=== PATIENT | female | born 1980 | race Caucasian/White ===

== ENCOUNTER → 2018-02-03 | Outpatient (CLI) | payer BC ==
--- NOTE | 2018-02-03 11:31 | RAD ---
Examination: Ultrasound pelvis complete HISTORY: History of pelvic pain, irregular menses COMPARISON: None available FINDINGS: The uterus measures 11.8 x 6.2 x 5.2 cm. The endometrium measures 1.6 cm in thickness. The right ovary measures 2.8 x 2.3 x 2.1 cm. The evaluation of the right ovary is very limited particularly its blood flow as a right ovary is situated deep in the pelvis. Patient complains of no acute pain. The left ovary measures 3.0 x 3.7 x 1.8 cm. Blood flow identified in the left ovary. IMPRESSION: Mild thickened appearing endometrium. Evaluation of the right ovary is limited as the right ovary is situated deep in the pelvis. Patient complains of no acute pain. Electronically signed by: Kelvin Greene MD (02/03/2018 11:28 AM) [id number]
--- NOTE | 2018-02-03 14:46 | RAD ---
Left axillary ultrasound without comparison for enlarged left axillary lymph nodes. TECHNIQUE AND FINDINGS: Real-time grayscale and color Doppler evaluation of the left axilla is performed. There are several axillary lymph nodes, ranging in size from 1.7 cm to 4.9 cm in long axis. These demonstrate normal morphology, and are likely pathologic on the basis of infectious, inflammatory, or neoplastic etiologies. IMPRESSION: 1. Multiple morphologically abnormal left axillary lymph nodes. Consider infectious, inflammatory, or neoplastic etiologies. Electronically signed by: All Guerra MD (02/03/2018 2:43 PM) [id number]
== END | disposition home or self-care (01) ==
LOC: US 09:01
PROVIDERS: ATTEND Physician Assistant
DX: Z01.411 Encounter for gynecological examination (general) (routine) with abnormal findings (principal); R59.0 Localized enlarged lymph nodes; E28.2 Polycystic ovarian syndrome; N80.8 Other endometriosis; F32.89 Other specified depressive episodes; Z80.0 Family history of malignant neoplasm of digestive organs; Z81.8 Family history of other mental and behavioral disorders; R53.83 Other fatigue
CPT/HCPCS: 76830; 76856; 76881

== ENCOUNTER → 2018-02-09 | Outpatient (CLI) | payer BC ==
--- NOTE | 2018-02-10 09:35 | RAD ---
DATE: 02/09/2018 EXAM: MAMMO [place] SCREENING BILATERAL HISTORY: Routine screening COMPARISON: None available This study was interpreted with the benefit of Computerized Aided Detection (CAD). Breast Density: SCATTERED The breast parenchyma shows scattered fibroglandular densities. Breast parenchyma level B. FINDINGS: 2-D and 3-D tomosynthesis imaging was performed in CC and MLO projections. There are several small smooth nodules in the axillary tail regions of both breasts compatible with benign intramammary lymph nodes. There is a smooth 6 mm nodule in the inferolateral aspect of the right breast. This is also most likely an intramammary lymph node. No spiculated mass or architectural distortion is seen. No suspicious microcalcifications are evident. Fat-containing lymph nodes are present in the axillary regions bilaterally. IMPRESSION: Smooth bilateral nodules are probably intramammary lymph nodes. In the absence of prior mammograms to establish stability, follow-up bilateral mammography in 6 months and then at yearly intervals is suggested. BI-RADS CATEGORY: 3 PROBABLY BENIGN FINDING(S)-SHORT INTERVAL FOLLOW-UP SUGGESTED RECOMMENDED FOLLOW-UP: 6M 6 MONTH FOLLOW-UP PQRS compliance statement: Patient information was entered into a reminder system with a target due date for the next mammogram. Mammography is a sensitive method for finding small breast cancers, but it does not detect them all and is not a substitute for careful clinical examination. A negative mammogram does not negate a clinically suspicious finding and should not result in delay in biopsying a clinically suspicious abnormality. "Our facility is accredited by the [employer] Mammography Program."
== END | disposition home or self-care (01) ==
LOC: MAMMO 13:05
PROVIDERS: ATTEND Physician Assistant
DX: Z12.31 Encounter for screening mammogram for malignant neoplasm of breast (principal)
CPT/HCPCS: 77063; 77067

== ENCOUNTER → 2018-06-17 | Outpatient (CLI) | payer BC ==
--- NOTE | 2018-06-17 16:33 | RAD ---
Complete abdominal ultrasound 06/17/2018 10:00 AM Clinical History: Technically difficult due to body habitus! Epigastric pain x's ~6 months nausea constant
pain intermittent Technique: Ultrasound examination of the abdomen was performed, and multiple static images were submitted for review. Comparison: None available Findings: The pancreas is poorly visualized. Visualized portions of the pancreas demonstrate no acute normalities. Visualized portions of the aorta and IVC are grossly unremarkable. Multiple gallstones noted within the gallbladder lumen. No evidence of wall thickening is seen. No pericholecystic fluid is identified. Common bile duct is top normal in diameter at 4 mm. The liver isvisualized. Visualized portions of liver demonstrate no focal lesion. Liver size is difficult to assess. Visualized liver appears to be diffusely echogenic suggesting hepatic steatosis. Right kidney is unremarkable in appearance measuring 11.2 cm in length. Left kidney is unremarkable in appearance measuring 12.1 cm in length. The spleen is unremarkable in appearance. IMPRESSION: 1. Cholelithiasis without sonographic evidence of cholecystitis 2. Poor visualization of the liver. Possible hepatic steatosis. Electronically signed by: Edgar Lares MD (06/17/2018 4:31 PM) [id number]
== END | disposition home or self-care (01) ==
LOC: US 09:36
PROVIDERS: ATTEND Physician Assistant
DX: K80.20 Calculus of gallbladder without cholecystitis without obstruction (principal)
CPT/HCPCS: 76700

== ENCOUNTER → 2020-04-23 | Outpatient (CLI) | payer OTHER ==
[~2020-04-23] MED LIST: ALBU2.5V8 INH; CHOL100013 PO; DEXL60CA2 PO; METF500T16 PO; ONDA4TAB7 PO
--- NOTE | 2020-04-23 09:50 | RAD ---
EXAM: Right ankle, 3 views; right tibia and fibula, 2 views. HISTORY: Pain. COMPARISON: None. FINDINGS: 3 views the right ankle and 2 views the right tibia and fibular obtained. There is internal fixation of a distal tibial metadiaphyseal fracture with a plate and multiple screws in anatomic ali gnment. There is a healed distal fibular diaphyseal fracture. The ankle mortise intact. No osteochond ral lesion is seen. There is lucency within the talar dome which is likely due to the abdomen overlyi ng osseous shadows. There is a tiny plantar spur. There is enthesopathy at Achilles tendon insertion. IMPRESSION: 1. Internal fixation of a healed distal tibial fracture. 2. Healed distal fibular fracture. Electronically signed by: Betsy Hernandez MD (04/23/2020 9:48 AM) [id number]
== END ==
LOC: DXRAD 09:04
PROVIDERS: ATTEND Physician Assistant
DX: M79.661 Pain in right lower leg (principal)
CPT/HCPCS: 73590; 73610

== ENCOUNTER 2020-05-18 11:45 | Inpatient (IN) | payer OTHER ==
[~2020-05-18] VITALS: Ht 165.1 cm; Wt 103.0 kg
[2020-05-18] MEDS ORDERED: ONDANSETRON PF 4 MG/2 ML VIAL. ONE (12:08)
[2020-05-18] MEDS ORDERED: ACETAMINOPHEN 500 MG TABLET PO ONE (12:15)
[2020-05-18] MEDS ORDERED: ONDANSETRON PF 4 MG/2 ML VIAL. IVP ONE (12:15)
[2020-05-18 12:29] LABS: BASO % 0 % (0-3); EOS % 0 % (0-3); HEMATOCRIT 44.3 % (36.0-47.0); HEMOGLOBIN 14.8 g/dL (12.0-15.5); LYMPH # 1.5 x10^3/uL (1.0-4.8); LYMPH % 27 % (24-48); MEAN CORPUSCULAR HEMOGLOBIN 31 pg (25-35); MEAN CORPUSCULAR HGB CONC 34 g/dL (31-37); MEAN CORPUSCULAR VOLUME 93 fL (79-100); MONO # 0.6 x10^3/uL (0.0-1.1); MONO % 10 % (0-9); NEUT # 3.6 x10^3uL (1.8-7.7); NEUT % 63 % (31-73); PLATELET COUNT 205 x10^3/uL (140-400); RED BLOOD COUNT 4.74 x10^6/uL (3.50-5.40); RED CELL DISTRIBUTION WIDTH 13.6 % (11.5-14.5); WHITE BLOOD COUNT 5.7 x10^3/uL (4.0-11.0)
--- NOTE | 2020-05-18 12:33 | RAD ---
EXAM: Chest, single view. HISTORY: Covid 19. COMPARISON: None. FINDINGS: A frontal view of the chest is obtained. There is no infiltrate, pleural effusion or pneumo thorax. The heart is normal in size. IMPRESSION: No acute pulmonary finding. Electronically signed by: Betsy Hernandez MD (05/18/2020 12:31 PM) [facility]
[2020-05-18 12:39] LABS: CALCIUM 8.5 mg/dL (8.5-10.1); CREATININE 0.9 mg/dL (0.6-1.0); POTASSIUM 3.4 mmol/L (3.5-5.1)
[2020-05-18 12:45] LABS: ALBUMIN 3.8 g/dL (3.4-5.0); ALBUMIN/GLOBULIN RATIO 0.9 (1.0-1.7); C REACTIVE PROTEIN 42.5 mg/L (0-3.3); TOTAL BILIRUBIN 0.3 mg/dL (0.2-1.0); TOTAL PROTEIN 8.1 g/dL (6.4-8.2)
[2020-05-18 12:53] LABS: BACTERIA,URINE MOD /HPF (0-FEW); BILIRUBIN,URINE NEG (NEG); CLARITY,URINE HAZY; COLOR,URINE YELLOW; GLUCOSE,URINE NEG (NEG); NITRITE,URINE NEG (NEG); RBC,URINE OCC /HPF (0-2); SQUAMOUS EPITHELIAL CELL,UR MANY /LPF; UROBILINOGEN,URINE 0.2 mg/dL (0.2 mg/dL)
[2020-05-18] MEDS ORDERED: guaiFENesin/CODEINE 100mg/10mg 5 ML LIQUID PO PRN (13:00)
[2020-05-18] MEDS ORDERED: DEXAMETHASONE SOD PHOS 10 MG/ML VIAL. IV ONE (13:00)
[2020-05-18] MEDS ORDERED: guaiFENesin/CODEINE 100mg/10mg 5 ML LIQUID ONE (13:04)
[2020-05-18] MEDS ORDERED: IV NORMAL SALINE 1,000ML 1,000 ML IV ONE (13:15)
[2020-05-18] MEDS ORDERED: ONDANSETRON PF 4 MG/2 ML VIAL. IVP PRN (13:15)
[2020-05-18] MEDS ORDERED: ACETAMINOPHEN 325 MG TABLET PO PRN (13:15)
--- NOTE | 2020-05-18 13:17 | PHYS DOC ---
Past History Past Medical History: Diabetes, Pneumonia Past Surgical History: Appendectomy, Cholecystectomy, Hysterectomy, Tonsillectomy Alcohol Use: Occasionally Adult General Chief Complaint Chief Complaint: MULTIPLE COMPLAINTS [facility] HPI Patient is a 40-year-old female presents to the emergency room with 3 days of body aches, cough, shortness of breath, fever, chills, headache. She states she initially got a headache on Wednesday night and then started having some body aches on Wednesday. On she went into work and they did a rapid test on her which was positive. Since then her symptoms have beginning worse. She has not been taking anything at home for her symptoms. She has also developed some diarrhea and nausea. She saw her primary care physician this morning who sent her here for evaluation due to significant shortness of breath and dehydration. Patient states that the aching is throughout her back and legs. Her headaches are intermittent and frontal. Review of Systems Review of Systems Complete ROS is negative unless otherwise documented in HPI Current Medications Current Medications Current Medications Medications (Trade) Dose Ordered Sig/Jacob Start Time Stop Time Status Last Admin Dose Admin Acetaminophen (Tylenol) 500 mg 1X ONCE 05/18/20 12:15 05/18/20 12:16 DC 05/18/20 12:14 500 MG Dexamethasone Sodium Phosphate (Decadron) 10 mg 1X ONCE 05/18/20 13:00 05/18/20 13:01 DC 05/18/20 13:08 10 MG Guaifenesin/ Codeine Phosphate (Robitussin Ac) 5 ml STK-MED ONCE 05/18/20 13:04 05/18/20 13:05 DC Ondansetron HCl (Zofran) 4 mg 1X ONCE 05/18/20 12:15 05/18/20 12:16 DC 05/18/20 12:12 4 MG Sodium Chloride 1,000 ml @ 1,000 mls/hr 1X ONCE 05/18/20 13:15 05/18/20 14:14 05/18/20 13:09 1,000 MLS/HR Allergies Allergies Allergies Coded Allergies Type Severity Reaction Last Updated Verified No Known Drug Allergies 05/18/20 No Physical Exam Physical Exam General: Awake, alert, mild distrss. Well Nourished, well hydrated. Cooperative HEENT: Atraumatic, EOMI, PERRL, airway patent, moist oral mucosa Neck: Supple, trachea midline Respiratory: CTA bilaterally, normal effort, no wheezing/crackles CV: tachycardic, no murmur, cap refill <2 GI: Soft, nondistended, nontender, no masses MSK: No obvious deformities Skin: Warm, dry, intact Neuro: A&O x3, speech NL, sensory and motor grossly intact, no focal deficits Psych: Normal affect, normal mood, not suicidal or homicidal Current Patient Data Vital Signs Vital Signs Date Time Temp Pulse Resp B/P (MAP) Pulse Ox O2 Delivery O2 Flow Rate FiO2 05/18/20 11:48 100.5 103 129/80 (96) 98 05/18/20 11:45 18 Lab Results Laboratory Tests Test 05/18/20 12:00 05/18/20 12:07 White Blood Count 5.7 x10^3/uL (4.0-11.0) Red Blood Count 4.74 x10^6/uL (3.50-5.40) Hemoglobin 14.8 g/dL (12.0-15.5) Hematocrit 44.3 % (36.0-47.0) Mean Corpuscular Volume 93 fL (79-100) Mean Corpuscular Hemoglobin 31 pg (25-35) Mean Corpuscular Hemoglobin Concent 34 g/dL (31-37) Red Cell Distribution Width 13.6 % (11.5-14.5) Platelet Count 205 x10^3/uL (140-400) Neutrophils (%) (Auto) 63 % (31-73) Lymphocytes (%) (Auto) 27 % (24-48) Monocytes (%) (Auto) 10 % (0-9) H Eosinophils (%) (Auto) 0 % (0-3) Basophils (%) (Auto) 0 % (0-3) Neutrophils # (Auto) 3.6 x10^3uL (1.8-7.7) Lymphocytes # (Auto) 1.5 x10^3/uL (1.0-4.8) Monocytes # (Auto) 0.6 x10^3/uL (0.0-1.1) Eosinophils # (Auto) 0.0 x10^3/uL (0.0-0.7) Basophils # (Auto) 0.0 x10^3/uL (0.0-0.2) Urine Collection Type Unknown Urine Color Yellow Urine Clarity Hazy Urine pH 6.0 Urine Specific [place] 1.020 Urine Protein Neg (NEG-TRACE) Urine Glucose (UA) Neg mg/dL (NEG) Urine Ketones (Stick) Neg mg/dL (NEG) Urine Blood Small (NEG) Urine Nitrite Neg (NEG) Urine Bilirubin Neg (NEG) Urine Urobilinogen Dipstick 0.2 mg/dL (0.2 mg/dL) Urine Leukocyte Esterase Neg (NEG) Urine RBC Occ /HPF (0-2) Urine WBC 5-10 /HPF (0-4) Urine Squamous Epithelial Cells Many /LPF Urine Transitional Epithelial Cells Occ /LPF Urine Bacteria Mod /HPF (0-FEW) Sodium Level 134 mmol/L (136-145) L Potassium Level 3.4 mmol/L (3.5-5.1) L Chloride Level 97 mmol/L (98-107) L Carbon Dioxide Level 28 mmol/L (21-32) Anion Gap 9 (6-14) Blood Urea Nitrogen 11 mg/dL (7-20) Creatinine 0.9 mg/dL (0.6-1.0) Estimated GFR (Cockcroft-Gault) 69.0 BUN/Creatinine Ratio 12 (6-20) Glucose Level 101 mg/dL (70-99) H Calcium Level 8.5 mg/dL (8.5-10.1) Total Bilirubin 0.3 mg/dL (0.2-1.0) Aspartate Amino Transferase (AST) 45 U/L (15-37) H Alanine Aminotransferase (ALT) 61 U/L (14-59) H Alkaline Phosphatase 51 U/L (46-116) Lactate Dehydrogenase 213 U/L (81-234) Creatine Kinase 97 U/L (26-192) C-Reactive Protein 42.5 mg/L (0-3.3) H Total Protein 8.1 g/dL (6.4-8.2) Albumin 3.8 g/dL (3.4-5.0) Albumin/Globulin Ratio 0.9 (1.0-1.7) L EKG EKG [] Radiology/Procedures Radiology/Procedures [] Heart Score Risk Factors: Risk Factors: DM, Current or recent (<one month) smoker, HTN, HLP, family history of CAD, obesity. Risk Scores: Risk Factors: DM, Current or recent (<one month) smoker, HTN, HLP, family history of CAD, obesity. Course & Med Decision Making Course & Med Decision Making Pertinent Labs and Imaging studies reviewed. (See chart for details) Patient is a 40-year-old female who presents to the emergency room with multiple Covid symptoms. At this time there is concern for the novel coronavirus 19. Patient's risk factors include obesity. Risk stratifying work-up was ordered including chest x-ray, d-dimer, CPK, CRP, LDH, troponin, ferritin, CBC, CMP. At this time, patients labs, vitals, and exam are significant for hypoxia. Due to patient's risk and clinical picture, they will need to be admitted at this time. IVFs will be limited due to concern for fluid overload in COVID-19 patients. Patient will be given empiric antibiotics due to infiltrates and risk of co- bacterial infection. Further treatment will be dictated by the inpatient team. Dragon Disclaimer Dragon Disclaimer This electronic medical record was generated, in whole or in part, using a voice recognition dictation system. Departure Departure: Impression: Primary Impression: 2019 novel coronavirus disease (COVID-19) Additional Impression: Respiratory failure with hypoxia Disposition: ADMITTED INPT THIS HOSP Condition: STABLE Referrals: JESSICA CORREA MD (PCP) Problem Qualifiers JENN CORDON MD May 18, 2020 13:17
[2020-05-18] MEDS ORDERED: IV NORMAL SALINE 50ML 50 ML ONE (14:44)
[2020-05-18] MEDS ORDERED: cefTRIAXone SODIUM 1 GM VIAL ONE (14:44)
[2020-05-18] MEDS ORDERED: MAG HYDROX/AL HYDROX/SIMETH 30 ML ORAL.SUSP PO PRN (16:30)
[2020-05-18] MEDS ORDERED: ELECTROLYTE (NON-ICU) PROTOCOL. MC PRN (16:30)
[2020-05-18 16:52] VITALS: BP 114/45
--- NOTE | 2020-05-18 17:10 | NUR ---
Patient admitted from [facility] ED. Patient accompanied with EMS staff. Patient able to ambulate to bed. Patient's belongings kept with patient, hooked up to secured entrance monitor and oxygen. Initial assessments complete, Rocephin from ER completed upon admission. Dr. Hawkins bedside to assess patient at this time, no complaints of pain. Will continue to monitor critically.
[2020-05-18] MEDS: ENOXAPARIN 40 MG/0.4 ML SYRINGE. SQ SCH (17:30)
[2020-05-18] MEDS ORDERED: ONDA4TAB7 PO (18:32)
[2020-05-18] MEDS ORDERED: METF500T16 PO (18:35)
[2020-05-18 20:00] VITALS: BP 97/56
[2020-05-18] MEDS ORDERED: IPRATROPIUM BROMIDE 0.5 MG/2.5 ML NEBU. NEB SCH (20:00)
[2020-05-18] MEDS: IPRATROPIUM/ALBUTEROL 20/100mcg/INH INHALER. INH SCH (20:21)
[2020-05-18] MEDS: DEXAMETHASONE 4 MG TABLET PO SCH (20:21)
[2020-05-18] MEDS: ACETAMINOPHEN 500 MG TABLET PO PRN (20:33)
[2020-05-19] MEDS: guaiFENesin/CODEINE 100mg/10mg 5 ML LIQUID PO PRN ×3 (04:48→18:42)
[2020-05-19 05:30] VITALS: BP 97/58
[2020-05-19] MEDS: LACTOBACILLUS RHAMNOSUS GG 1 CAPSULE. PO SCH ×2 (07:58→20:04)
[2020-05-19] MEDS: ACETAMINOPHEN 500 MG TABLET PO PRN (07:59)
[2020-05-19] MEDS: DEXAMETHASONE 4 MG TABLET PO SCH ×3 (07:59→20:04)
[2020-05-19] MEDS: AZITHROMYCIN 250 MG TABLET. PO SCH (07:59)
[2020-05-19] MEDS: IPRATROPIUM/ALBUTEROL 20/100mcg/INH INHALER. INH SCH ×4 (08:00→20:00)
[2020-05-19 08:45] LABS: BASO % 1 % (0-3); EOS % 0 % (0-3); HEMATOCRIT 45.6 % (36.0-47.0); HEMOGLOBIN 15.3 g/dL (12.0-15.5); LYMPH # 0.6 x10^3/uL (1.0-4.8); LYMPH % 20 % (24-48); MEAN CORPUSCULAR HEMOGLOBIN 31 pg (25-35); MEAN CORPUSCULAR HGB CONC 34 g/dL (31-37); MEAN CORPUSCULAR VOLUME 94 fL (79-100); MONO # 0.3 x10^3/uL (0.0-1.1); MONO % 8 % (0-9); NEUT # 2.3 x10^3uL (1.8-7.7); NEUT % 72 % (31-73); PLATELET COUNT 199 x10^3/uL (140-400); RED BLOOD COUNT 4.87 x10^6/uL (3.50-5.40); RED CELL DISTRIBUTION WIDTH 13.3 % (11.5-14.5); WHITE BLOOD COUNT 3.2 x10^3/uL (4.0-11.0)
[2020-05-19 11:00] VITALS: BP 97/66
[2020-05-19 13:43] LABS: ALBUMIN 3.5 g/dL (3.4-5.0); TOTAL PROTEIN 7.8 g/dL (6.4-8.2)
[2020-05-19 13:44] LABS: CALCIUM 8.7 mg/dL (8.5-10.1); CREATININE 0.6 mg/dL (0.6-1.0); GFR 110.2; POTASSIUM 4.3 mmol/L (3.5-5.1); TOTAL BILIRUBIN 0.2 mg/dL (0.2-1.0)
[2020-05-19 13:45] LABS: DIRECT BILIRUBIN 0.1 mg/dL (0.0-0.2)
[2020-05-19 15:00] VITALS: BP 96/61
[2020-05-19] MEDS: ENOXAPARIN 40 MG/0.4 ML SYRINGE. SQ SCH (16:34)
--- NOTE | 2020-05-19 16:59 | PN ---
DATE: SUBJECTIVE: A 40-year-old female in with COVID-19 pneumonia, acute respiratory distress. The patient is feeling much better today, not as achy. OBJECTIVE: VITAL SIGNS: Blood pressure approximately 100/66, respiratory rate 20, pulse 60, afebrile. The patient is very ill appearing, but markedly improved 2 liters at 97%. GENERAL: The patient is alert and oriented. LUNGS: Diminished throughout, but basically clear. CARDIOVASCULAR: Regular sinus rhythm. ABDOMEN: Soft, nontender. EXTREMITIES: No clubbing, cyanosis, nor edema. NEUROLOGIC: Stable. IMPRESSION: COVID-19 pneumonia, acute exacerbation of asthma, hypoxia. PLAN: Continue to monitor the patient accordingly. JESSICA CORREA MD DR: NAHOMY/johanna JOB#: [id number] / [id number]
[2020-05-19 20:00] VITALS: BP 90/69
[2020-05-19] MEDS: ZOLPIDEM 5 MG TABLET. PO PRN (20:05)
[2020-05-19 23:34] VITALS: BP 92/55
[2020-05-20] MEDS: AZITHROMYCIN 250 MG TABLET. PO SCH (07:49)
[2020-05-20] MEDS: ACETAMINOPHEN 500 MG TABLET PO PRN (07:49)
[2020-05-20] MEDS: DEXAMETHASONE 4 MG TABLET PO SCH ×3 (07:49→20:57)
[2020-05-20] MEDS: IPRATROPIUM/ALBUTEROL 20/100mcg/INH INHALER. INH SCH ×4 (07:49→20:00)
[2020-05-20] MEDS: LACTOBACILLUS RHAMNOSUS GG 1 CAPSULE. PO SCH ×2 (07:49→20:56)
[2020-05-20 08:32] VITALS: BP 126/68
[2020-05-20] MEDS: guaiFENesin/CODEINE 100mg/10mg 5 ML LIQUID PO PRN (10:01)
--- NOTE | 2020-05-20 10:06 | PN ---
DATE: 05/20/2020 SUBJECTIVE: The patient is a 40-year-old female in with bilateral COVID-19 pneumonia, acute respiratory failure, severe bronchospasm. The patient had been feeling better yesterday. Says she does not feel well, as she did yesterday. Blood pressure dropped down to 92/55, respiratory rate 18, pulse 84, temperature up to 100.9. She is on 2 liters of nasal cannula. She has severe coughing jags, given her coughing medication Combivent, Decadron. PHYSICAL EXAMINATION: GENERAL: The patient otherwise on exam is alert and oriented, but very uncomfortable with her coughing and weakness. LUNGS: Diminished throughout, poor movement of air, but basically making good progress there. The patient otherwise making fair progress, but still obviously ____ way to go. She continues on Rocephin, Levaquin, azithromycin, Decadron, Lovenox treatments. She is certainly not low enough to put her on remdesivir. We will continue to monitor and give her some guaifenesin along with her cough medicine, Fioricet. She does have a headache, although she said Tylenol helped it. She has no nuchal rigidity. No nausea or vomiting presently. She is alert and oriented. IMPRESSION: COVID-19 pneumonia, severe bronchospasm, hypotension. Continue to monitor her. Continue on IV antibiotic therapy, respiratory therapy and make further adjustments accordingly. JESSICA CORREA MD DR: NAHOMY/johanna JOB#: [id number] / [id number]
[2020-05-20 11:33] VITALS: BP 101/71
[2020-05-20] MEDS ORDERED: IPRATRPIUM/ALBUTEROL 0.5/2.5MG 3 ML NEBU. INH SCH (12:00)
[2020-05-20] MEDS: BUTALB/APAP/CAFEIN 50/325/40MG TABLET. PO PRN ×2 (13:32→20:57)
[2020-05-20 13:42] VITALS: BP 98/56
--- NOTE | 2020-05-20 16:31 | RAD ---
XR CHEST 1V INDICATION: Reason: SHORTNESS OF BREATH / Spl. Instructions: / History: . COMPARISON STUDY: 05/18/2020. FINDINGS: Lungs: Low lung volume. Increasing bibasilar opacities. Normal pulmonary vasculature. Pleura: No pleural effusion or pneumothorax. Heart and Mediastinum: Stable cardiomediastinal silhouette and great vessels. IMPRESSION: Low lung volumes with increasing bibasilar opacities, possibly subsegmental atelectasis or a developi ng infectious/inflammatory process. Electronically signed by: Marcio Fitzpatrick MD (05/20/2020 4:28 PM) [facility]
[2020-05-20] MEDS: ENOXAPARIN 40 MG/0.4 ML SYRINGE. SQ SCH (16:53)
[2020-05-20 16:57] LABS: BASO # 0.1 x10^3/uL (0.0-0.2); BASO % 1 % (0-3); EOS % 0 % (0-3); HEMATOCRIT 41.6 % (36.0-47.0); LYMPH # 0.7 x10^3/uL (1.0-4.8); LYMPH % 6 % (24-48); MEAN CORPUSCULAR HEMOGLOBIN 31 pg (25-35); MEAN CORPUSCULAR HGB CONC 34 g/dL (31-37); MEAN CORPUSCULAR VOLUME 93 fL (79-100); MONO # 0.6 x10^3/uL (0.0-1.1); MONO % 6 % (0-9); NEUT # 9.4 x10^3uL (1.8-7.7); NEUT % 88 % (31-73); PLATELET COUNT 229 x10^3/uL (140-400); RED BLOOD COUNT 4.46 x10^6/uL (3.50-5.40); RED CELL DISTRIBUTION WIDTH 13.3 % (11.5-14.5); WHITE BLOOD COUNT 10.7 x10^3/uL (4.0-11.0)
[2020-05-20 17:11] LABS: CALCIUM 8.2 mg/dL (8.5-10.1); CREATININE 0.9 mg/dL (0.6-1.0); POTASSIUM 3.5 mmol/L (3.5-5.1)
[2020-05-20] MEDS ORDERED: PIP/TAZO PER PHARMACY MC PRN (18:00)
[2020-05-20] MEDS: PIPERACILLIN/TAZOBACTAM 3.375 GM in IV NORMAL SALINE 50ML 50 ML IV SCH (18:24)
[2020-05-20 20:00] VITALS: BP 111/73
[2020-05-20] MEDS: ZOLPIDEM 5 MG TABLET. PO PRN (20:56)
[2020-05-21 00:30] VITALS: BP 97/60
[2020-05-21] MEDS: PIPERACILLIN/TAZOBACTAM 3.375 GM in IV NORMAL SALINE 50ML 50 ML IV SCH ×4 (00:34→18:26)
[2020-05-21] MEDS: guaiFENesin/CODEINE 100mg/10mg 5 ML LIQUID PO PRN ×2 (05:52→18:25)
[2020-05-21 06:03] VITALS: BP 100/64
[2020-05-21 06:31] LABS: BASO % 0 % (0-3); EOS % 0 % (0-3); HEMATOCRIT 40.3 % (36.0-47.0); HEMOGLOBIN 13.4 g/dL (12.0-15.5); LYMPH # 0.8 x10^3/uL (1.0-4.8); LYMPH % 12 % (24-48); MEAN CORPUSCULAR HEMOGLOBIN 31 pg (25-35); MEAN CORPUSCULAR HGB CONC 33 g/dL (31-37); MEAN CORPUSCULAR VOLUME 94 fL (79-100); MONO # 0.5 x10^3/uL (0.0-1.1); MONO % 7 % (0-9); NEUT # 5.7 x10^3uL (1.8-7.7); NEUT % 82 % (31-73); PLATELET COUNT 200 x10^3/uL (140-400); RED BLOOD COUNT 4.31 x10^6/uL (3.50-5.40); RED CELL DISTRIBUTION WIDTH 13.3 % (11.5-14.5)
[2020-05-21 06:41] LABS: CALCIUM 8.1 mg/dL (8.5-10.1); CREATININE 0.7 mg/dL (0.6-1.0); GFR 92.2; POTASSIUM 3.7 mmol/L (3.5-5.1)
[2020-05-21] MEDS: IPRATROPIUM/ALBUTEROL 20/100mcg/INH INHALER. INH SCH ×4 (08:00→20:00)
[2020-05-21] MEDS: DEXAMETHASONE 4 MG TABLET PO SCH ×4 (08:41→20:00)
[2020-05-21] MEDS: LACTOBACILLUS RHAMNOSUS GG 1 CAPSULE. PO SCH ×2 (08:41→20:00)
[2020-05-21] MEDS: AZITHROMYCIN 250 MG TABLET. PO SCH (08:41)
[2020-05-21 09:32] VITALS: BP 94/66
--- NOTE | 2020-05-21 10:47 | PN ---
DATE: 05/21/2020 SUBJECTIVE: A 40-year-old female with bilateral COVID-19 pneumonia, had been doing well couple of days ago, now ____ temperature is 101-99, oxygen saturation is depreciated and have to increase her oxygen saturation, dropped down in the 80s without her nasal cannula on. The patient is still chilling and having severe problems with this infection despite being on Levaquin, Zosyn and azithromycin. OBJECTIVE: GENERAL: The patient otherwise continues on her Decadron. She is also on Lovenox as well, but continues to somewhat deteriorate. She is having trouble bringing up phlegm, some shortness of breath with minimal exertion. Otherwise, alert and oriented, but very ill appearing. LUNGS: Diminished, particularly in the bases. CARDIOVASCULAR: Regular sinus rhythm, S1, S2. ABDOMEN: Soft, nontender, no rebounding, no guarding. Positive bowel sounds. EXTREMITIES: No clubbing, cyanosis or edema. NEUROLOGIC: Intact. LABORATORY DATA: White count looks basically stable as does her electrolytes. Blood sugars are a little bit high with the Decadron. Otherwise, we will continue to monitor her accordingly and make further evaluation on her as indicated. IMPRESSION: Therefore, bilateral COVID-19 pneumonia, sepsis, acute respiratory distress with hypoxia, elevated liver enzymes, hyperglycemia. PLAN: Continue with IV therapy and try to start her on remdesivir per pharmacy's approval. JESSICA CORREA MD DR: NAHOMY/johanna JOB#: [id number] / [id number]
[2020-05-21] MEDS ORDERED: REMDESIVIR LOAD in IV NORMAL SALINE 250ML TV IV ONE (12:00)
[2020-05-21 13:50] VITALS: BP 91/49
[2020-05-21 14:35] LABS: BACTERIA,URINE 0 /HPF (0-FEW); BILIRUBIN,URINE NEG (NEG); CLARITY,URINE CLEAR; COLOR,URINE YELLOW; GLUCOSE,URINE NEG (NEG); NITRITE,URINE NEG (NEG); SQUAMOUS EPITHELIAL CELL,UR FEW /LPF; UROBILINOGEN,URINE 0.2 mg/dL (0.2 mg/dL); WBC,URINE OCC /HPF (0-4)
[2020-05-21] MEDS: ENOXAPARIN 40 MG/0.4 ML SYRINGE. SQ SCH (17:11)
[2020-05-21 19:47] VITALS: BP 97/61
[2020-05-21] MEDS: BUTALB/APAP/CAFEIN 50/325/40MG TABLET. PO PRN (20:00)
[2020-05-21] MEDS: ZOLPIDEM 5 MG TABLET. PO PRN (20:00)
[2020-05-21 22:53] VITALS: BP 108/65
[2020-05-22] MEDS: PIPERACILLIN/TAZOBACTAM 3.375 GM in IV NORMAL SALINE 50ML 50 ML IV SCH ×2 (00:15→05:34)
[2020-05-22] MEDS: guaiFENesin/CODEINE 100mg/10mg 5 ML LIQUID PO PRN (05:33)
[2020-05-22 05:35] VITALS: BP 92/54
[2020-05-22] MEDS: LACTOBACILLUS RHAMNOSUS GG 1 CAPSULE. PO SCH (07:50)
[2020-05-22] MEDS: AZITHROMYCIN 250 MG TABLET. PO SCH (07:50)
[2020-05-22] MEDS: DEXAMETHASONE 4 MG TABLET PO SCH (07:51)
[2020-05-22] MEDS: IPRATROPIUM/ALBUTEROL 20/100mcg/INH INHALER. INH SCH ×2 (07:51→12:00)
--- NOTE | 2020-05-22 10:32 | NUR ---
LEATHER BELT MAKER REPORTS DECREASED SA02 DURING ROUTINE VS. ASSESSED LUNG SOUNDS, BASES ARE DIMINISHED. EFFORT OF BREATHING HAS INCREASED. O2 INCREASED TO 6L/NC, SATURATIONS HOVER IN HIGH 80'S. DR CORREA IS ROUNDING ON FLOOR, REQUESTS CXR ET ABG. TESTING ORDERED, AWAITING RESULT.
[2020-05-22 10:51] VITALS: BP 89/45
[2020-05-22] MEDS ORDERED: IV NORMAL SALINE 1,000ML 1,000 ML IV SCH ×2 (11:15→12:15)
[2020-05-22] MEDS ORDERED: REMDESIVIR 100mg in NORMAL SALINE 250ML X 4 DAYS IV SCH (12:00)
--- NOTE | 2020-05-22 12:04 | NUR ---
ENTERED ROOM WITH INTENT TO PLACE PT ON NON-REBREATHER. SAO2 CURRENTLY 93% ON 6L/NC. PT DECLINES NON REBREATHER AT THIS TIME, BUT STATES WILL REPORT EVEN THE SLIGHTEST CHANGE IN BREATHING FOR SWITCH FROM NASAL CANNULA.
--- NOTE | 2020-05-22 12:53 | NUR ---
PT CALLS OUT FOR INCREASED LABOR OF BREATHING. SAO2 IS 88% ON 6LN/C. CHANGED OVER TO NON REBREATHER AT 15L, IMMEDIATE IMPROVEMENT TO 95%. REC'D CALL FROM [facility], TRANSFER TO ROOM 664. EMS INITIATED. AWAITING THEIR ARRIVAL FOR TRANSPORT.
--- NOTE | 2020-05-22 13:10 | NUR ---
REPORT GIVEN TO ALMA DELIA MATUTE, AT [facility]. EMS ARRIVES TO TRANSPORT. PT MOVED TO [facility], ALL POSSESSION SENT WITH HER AT THIS TIME.
--- NOTE | 2020-05-22 14:34 | RAD ---
EXAM: AP View of the chest DATE: 05/22/2020 11:00 AM INDICATION: COVID, INCREASING O2 DEMANDS COMPARISON: 05/20/2020 05/18/2020 FINDINGS: Patchy parenchymal opacities in the lung bases and peripheral right midlung, stable to 05/20/2020. Cardiomediastinal silhouette is stable. No pleural effusion or pneumothorax. IMPRESSION: Bilateral parenchymal opacities are essentially unchanged to 05/20/2020 Electronically signed by: Jonathan Mendoza MD (05/22/2020 2:32 PM) [id number]
== END 2020-05-22 13:49 | disposition short-term general hospital (02) | DRG 871 ==
LOC: ER 11:45 → 1 SOUTH 13:14
PROVIDERS: ADMIT Family Medicine; ATTEND Family Medicine
PROC: XW033E5 Introduction of Remdesivir Anti-infective into Peripheral Vein, Percutaneous Approach, New Technology Group 5 (ICD-10-PCS; principal; 2020-05-20)
DX: A41.9 Sepsis, unspecified organism (principal); U07.1 COVID-19; J96.01 Acute respiratory failure with hypoxia; J12.82 Pneumonia due to coronavirus disease 2019; J45.901 Unspecified asthma with (acute) exacerbation; E86.0 Dehydration; E11.65 Type 2 diabetes mellitus with hyperglycemia; Z90.49 Acquired absence of other specified parts of digestive tract; Z90.710 Acquired absence of both cervix and uterus
CPT/HCPCS: 36415; 71045; 80048; 80053; 80076; 81001; 82550; 82947; 83615; 85025; 86140; 87040; 87086; 96361; 96365; 96375; J0696; J1100; J1650; J1956; J2405; J2543; J7050; J8540; 99285-25; J7030

== ENCOUNTER → 2020-10-04 | Outpatient (CLI) | payer OTHER ==
--- NOTE | 2020-10-04 12:02 | RAD ---
PQRS Compliance Statement: One or more of the following individualized dose reduction techniques were utilized for this examinat ion: 1. Automated exposure control 2. Adjustment of the mA and/or kV according to patient size 3. Use of iterative reconstruction technique CT THORAX WO 10/04/2020 9:39 AM Indication: Dyspnea with history of Covid 19 in July 2020 COMPARISON: CT chest 05/24/2020. TECHNIQUE: Multiple axial CT images of the chest were obtained without intravenous contrast. Coronal and sagittal reformats are provided. FINDINGS: Thyroid gland is normal in appearance. Precarinal lymph node measures 0.6 cm. No pathologically enlar ged mediastinal, hilar or axillary lymph nodes. Heart size within normal limits. Thoracic aorta is no rmal in course and caliber. Thoracic esophagus is normal. There is diffuse hepatic steatosis. Focal f atty infiltration along the gallbladder fossa. There is biapical pleural parenchymal scarring. Diffus e reticular interstitial changes are identified throughout the lungs with subpleural sparing. No pleu ral effusions, pulmonary vascular congestion or pneumothorax. No suspicious solid noncalcified pulmon anabell nodule. No suspicious osseous abnormality is identified. Anterior wedge deformity of T11 with 25% height loss, chronic. IMPRESSION: Diffuse scattered reticular interstitial thickening with scattered groundglass changes with relative subpleural sparing noted throughout the lungs. Findings may represent early fibrotic changes secondar y to remote infectious/inflammatory sequela. No focal consolidative changes suggest superimposed infi ltrate. Previously seen diffuse groundglass opacities have nearly completely resolved with residual i nterstitial thickening. Electronically signed by: Valeri Sexton MD (10/04/2020 11:59 AM) [id number]
== END ==
LOC: CT 09:35
PROVIDERS: ATTEND Internal Medicine Pulmonary Disease
DX: R06.02 Shortness of breath (principal); K76.0 Fatty (change of) liver, not elsewhere classified; Z86.16 Personal history of COVID-19
CPT/HCPCS: 71250

== ENCOUNTER 2021-05-27 12:39 | Inpatient (IN) | payer SELFPAY ==
[~2021-05-27] VITALS: Ht 167.6 cm; Wt 104.1 kg
--- NOTE | 2021-05-27 13:12 | PHYS DOC ---
Past History Past Medical History: Diabetes, Pneumonia Past Surgical History: Appendectomy, Cholecystectomy, Hysterectomy, Tonsillectomy Alcohol Use: Occasionally Adult General Chief Complaint Chief Complaint: ABNORMAL LABS HPI HPI Patient is a 41-year-old female presenting for jaundice. This is an acute issue which just developed 4 days ago without any known inciting event, trauma, ingestion or other mechanism of injury. Nothing known makes better or worse. It was found incidentally while at home and concerned her so she called primary care physician yesterday. She was subsequently seen in clinic today and due to complaints of jaundice, epigastric pain, and new onset of joslyn/white-colored stools she was immediately referred to our ER for evaluation. On arrival, complains of ongoing abdominal pain with nausea, skin discoloration and white- colored stool. Admits she has history of cholecystectomy and hysterectomy in 2017 otherwise no other intra-abdominal surgeries. Does disclose that she was otherwise healthy until mg Covid in April 2020 with subsequent lengthy hospitalization where she had a trach and PEG tube placed with numerous inpatient and outpatient rehab stays prior to being discharged home. Reports otherwise in recent weeks she has been at baseline with typical 2 L home oxygen and no other reportable symptoms, sick contacts, recent change in medication or travel Review of Systems Review of Systems Fourteen body systems of review of systems have been reviewed. See HPI for pertinent positives and negative responses, other beltran all other systems are n egative, non-pertinent or non-contributory Allergies Allergies Allergies Coded Allergies Type Severity Reaction Last Updated Verified No Known Drug Allergies 05/18/20 No Physical Exam Physical Exam Constitutional: Well developed, well nourished, no acute distress, non-toxic appearance. Jaundice HENT: Normocephalic, atraumatic, bilateral external ears normal, oropharynx moist, no oral exudates, nose normal. Supplemental oxygen via nasal cannula in place Eyes: PERRLA, EOMI, conjunctiva normal, no discharge. Neck: Normal range of motion, no tenderness, supple, no stridor. Cardiovascular: Heart rate regular, sinus rhythm, no murmurs rubs or gallops Lungs & Thorax: Bilateral breath sounds clear to auscultation, no respiratory distress or accessory muscle use Abdomen: Bowel sounds normal, soft, generalized abdominal tenderness most present in epigastric region with guarding present, no rebound, no masses, no pulsatile masses. Nonsurgical abdomen, no peritoneal signs Skin: Warm, dry, no erythema, no rash. Jaundice present on skin, eyes and mucosal surfaces Back: No tenderness, no CVA tenderness. Extremities: No tenderness, no cyanosis, no clubbing, ROM intact, no edema. Neurologic: Alert and oriented X 3, grossly normal motor & sensory function, no focal deficits noted. Psychologic: Anxious affect and mood Current Patient Data Vital Signs Vital Signs Date Time Temp Pulse Resp B/P (MAP) Pulse Ox O2 Delivery O2 Flow Rate FiO2 05/27/21 13:00 97.8 66 20 136/77 (96) 96 Nasal Cannula 3.0 Vital Signs Date Time Temp Pulse Resp B/P (MAP) Pulse Ox O2 Delivery O2 Flow Rate FiO2 05/27/21 16:02 72 18 110/78 (89) 96 Nasal Cannula 3.0 05/27/21 13:00 97.8 Lab Results Laboratory Tests Test 05/27/21 13:15 05/27/21 13:29 05/27/21 14:05 05/27/21 15:35 Influenza Type A (Rapid) Negative Influenza Type B (Rapid) Negative SARS-CoV-2 Antigen (Rapid) Negative White Blood Count 7.2 x10^3/uL Red Blood Count 4.50 x10^6/uL Hemoglobin 14.1 g/dL Hematocrit 42.5 % Mean Corpuscular Volume 94 fL Mean Corpuscular Hemoglobin 31 pg Mean Corpuscular Hemoglobin Concent 33 g/dL Red Cell Distribution Width 15.8 % Platelet Count 229 x10^3/uL Neutrophils (%) (Auto) 51 % Lymphocytes (%) (Auto) 38 % Monocytes (%) (Auto) 10 % Eosinophils (%) (Auto) 1 % Basophils (%) (Auto) 1 % Neutrophils # (Auto) 3.6 x10^3uL Lymphocytes # (Auto) 2.7 x10^3/uL Monocytes # (Auto) 0.7 x10^3/uL Eosinophils # (Auto) 0.0 x10^3/uL Basophils # (Auto) 0.0 x10^3/uL Troponin I High Sensitivity < 4 ng/L Prothrombin Time 10.6 SEC Prothromb Time International Ratio 1.0 Activated Partial Thromboplast Time 25 SEC Sodium Level 133 mmol/L Potassium Level 3.4 mmol/L Chloride Level 98 mmol/L Carbon Dioxide Level 31 mmol/L Anion Gap 4 Blood Urea Nitrogen 8 mg/dL Creatinine 0.7 mg/dL Estimated GFR (Cockcroft-Gault) 91.8 BUN/Creatinine Ratio 11 Glucose Level 182 mg/dL Calcium Level 8.3 mg/dL Total Bilirubin 8.7 mg/dL Direct Bilirubin 6.9 mg/dL Aspartate Amino Transf (AST/SGOT) 386 U/L Alanine Aminotransferase (ALT/SGPT) 1415 U/L Alkaline Phosphatase 115 U/L Creatine Kinase 69 U/L Total Protein 6.7 g/dL Albumin 2.5 g/dL Albumin/Globulin Ratio 0.6 Lipase 194 U/L Acetaminophen Level < 2.0 mcg/mL Acetaminophen Last Dose Date Unk Acetaminophen Last Dose Time Unk Test 05/27/21 15:58 Urine Collection Type Clean catch Urine Color Tasneem Urine Clarity Clear Urine pH 6.5 Urine Specific [place] 1.015 Urine Protein 30 mg/dl Urine Glucose (UA) 100 mg/dL Urine Ketones (Stick) Trace mg/dL Urine Blood Neg Urine Nitrite Neg Urine Bilirubin Large Urine Urobilinogen Dipstick 1.0 mg/dL Urine Leukocyte Esterase Neg Urine RBC 0 /HPF Urine WBC 0 /HPF Urine Squamous Epithelial Cells Few /LPF Urine Bacteria 0 /HPF Urine Opiates Screen Neg Urine Methadone Screen Neg Urine Barbiturates Neg Urine Phencyclidine Screen Neg Urine Amphetamine/Methamphetamine Neg Urine Benzodiazepines Screen Pos Urine Cocaine Screen Neg Urine Cannabinoids Screen Neg Urine Ethyl Alcohol Neg Current Medications Medications (Trade) Dose Ordered Sig/Jacob Route PRN Reason Start Time Stop Time Status Last Admin Dose Admin Iohexol (Omnipaque 300 Mg/ml) 75 ml 1X ONCE IV 05/27/21 13:15 05/27/21 13:18 DC 05/27/21 14:42 Ondansetron HCl (Zofran) 4 mg PRN Q8HRS PRN IVP NAUSEA/VOMITING 05/27/21 16:45 05/28/21 16:44 Fentanyl Citrate (Fentanyl 2ml Vial) 50 mcg PRN Q2HR PRN IVP PAIN 05/27/21 16:45 05/28/21 16:44 Nitroglycerin (Nitrostat) 0.4 mg PRN Q5MIN PRN SL CHEST PAIN 05/27/21 16:45 05/28/21 16:44 Sodium Chloride 1,000 ml @ 150 mls/hr 1X ONCE IV 05/27/21 17:00 05/27/21 23:39 EKG EKG EKG ordered and interpreted by myself at 1321 hrs. as sinus rhythm at 80 bpm, unremarkable intervals, left axis deviation, no obvious ischemic findings, no STEMI Radiology/Procedures Radiology/Procedures Exam Date: 05/27/2021 2:[address] ABDOMEN+PELVIS W Indication: Reason: EPIGAST PAIN W/JAUNDICE,CHOLECYSTECTOMY-CREAT 0.6 / Spl. Instructions: / History: . TECHNIQUE: CT examination of the abdomen and pelvis was performed following the administration of nonionic intravenous contrast. One or more of the following dose reduction techniques were utilized: *Automated exposure control (AEC) *Adjustment of mA and/or kV according to patient size *Use of iterative reconstruction technique *CT scan done according to ALARA, or ALARA/IMAGE GENTLY FINDINGS: The visualized lung bases are clear. There is diffuse fatty infiltration of the liver. Liver is enlarged up to 23 cm. The spleen is enlarged up to 12 cm. Status post cholecystectomy. The liver, spleen, pancreas, adrenal glands and kidneys are otherwise normal. Urinary bladder is normal in appearance. There is no bowel obstruction or inflammation. No evidence for acute appendicitis. Mild atherosclerotic calcifications are seen. No lymphadenopathy or ascites is seen. Degenerative changes are seen in the spine. IMPRESSION: No evidence of acute intra-abdominal pathology. Hepatosplenomegaly noted. Electronically signed by: Rocky Forrest MD (05/27/2021 3:13 PM) [id number] Heart Score C/O Chest Pain: No Risk Factors: Risk Factors: DM, Current or recent (<one month) smoker, HTN, HLP, family history of CAD, obesity. Risk Scores: Risk Factors: DM, Current or recent (<one month) smoker, HTN, HLP, family history of CAD, obesity. Course & Med Decision Making Course & Med Decision Making ABCs unremarkable HPI physical exam and comprehensive ER work-up concerning for transaminitis without any immediate emergent or surgical issues, nonacute abdomen in nature Extensive history gathered with no obvious exposures or ingestions. She is not on any causative medications that could cause her liver injury. I question and I am concerned about potential infectious etiology with hepatitis panel pending I contacted patient's primary care physician who also serves as hospitalist, joint decision to admit for serial abdominal exams, trending of transaminitis to ensure improvement/resolution, and tracking of hepatitis panel to no definitive etiology of patient's liver insult prior to discharge home I have updated patient on entirety of ER work-up, findings and plan of care as discussed and she was amenable. All questions and concerns addressed prior to hospitalization Dragjulieth Disclaimer Dragon Disclaimer This electronic medical record was generated, in whole or in part, using a voice recognition dictation system. Departure Departure: Impression: Primary Impression: Transaminitis Additional Impression: Jaundice Disposition: 09 ADMITTED INPATIENT Admitting Physician: Jessica Correa Condition: STABLE Referrals: JESSICA CORREA MD (PCP) Problem Qualifiers MATTHEW LEMA DO May 27, 2021 13:11
[2021-05-27] MEDS ORDERED: IOHEXOL 300 MG/ML 75 ML VIAL. IV ONE (13:15)
--- NOTE | 2021-05-27 13:24 | EKG ---
[address] [address] Test Date: 2021-05-27 Test Time: 13:16:22 Pat Name: FRANCES BUCHANAN Department: Room: Gender: F Manager Safe: NAYA : 1980 Requested By: MATTHEW LEMA Order Number: [id number] Reading MD: Christophe Waterman MD Measurements Intervals Concepcion Rate: 80 P: 45 ND: 132 QRS: -23 QRSD: 88 T: 11 QT: 364 QTc: 423 Interpretive Statements SINUS RHYTHM Electronically Signed On 06-03-2021 8:21:46 RING SPINNER by Christophe Waterman MD
[2021-05-27 14:11] LABS: BASO % 1 % (0-3); EOS % 1 % (0-3); HEMATOCRIT 42.5 % (36.0-47.0); HEMOGLOBIN 14.1 g/dL (12.0-15.5); LYMPH # 2.7 x10^3/uL (1.0-4.8); LYMPH % 38 % (24-48); MEAN CORPUSCULAR HEMOGLOBIN 31 pg (25-35); MEAN CORPUSCULAR HGB CONC 33 g/dL (31-37); MEAN CORPUSCULAR VOLUME 94 fL (79-100); MONO # 0.7 x10^3/uL (0.0-1.1); MONO % 10 % (0-9); NEUT # 3.6 x10^3uL (1.8-7.7); NEUT % 51 % (31-73); PLATELET COUNT 229 x10^3/uL (140-400); RED CELL DISTRIBUTION WIDTH 15.8 % (11.5-14.5); WHITE BLOOD COUNT 7.2 x10^3/uL (4.0-11.0)
[2021-05-27 14:41] LABS: INFLUENZA A PATIENT NEGATIVE (NEGATIVE); INFLUENZA B PATIENT NEGATIVE (NEGATIVE)
[2021-05-27 14:54] LABS: ALBUMIN 2.5 g/dL (3.4-5.0); ALBUMIN/GLOBULIN RATIO 0.6 (1.0-1.7); CALCIUM 8.3 mg/dL (8.5-10.1); CREATININE 0.7 mg/dL (0.6-1.0); DIRECT BILIRUBIN 6.9 mg/dL (0.0-0.2); GFR 91.8; POTASSIUM 3.4 mmol/L (3.5-5.1); TOTAL BILIRUBIN 8.7 mg/dL (0.2-1.0); TOTAL PROTEIN 6.7 g/dL (6.4-8.2)
--- NOTE | 2021-05-27 15:16 | RAD ---
Exam Date: 05/27/2021 2:[address] ABDOMEN+PELVIS W Indication: Reason: EPIGAST PAIN W/JAUNDICE,CHOLECYSTECTOMY-CREAT 0.6 / Spl. Instructions: / History : . TECHNIQUE: CT examination of the abdomen and pelvis was performed following the administration of no nionic intravenous contrast. One or more of the following dose reduction techniques were utilized: *Automated exposure control (AEC) *Adjustment of mA and/or kV according to patient size *Use of iterative reconstruction technique *CT scan done according to ALARA, or ALARA/IMAGE GENTLY FINDINGS: The visualized lung bases are clear. There is diffuse fatty infiltration of the liver. Liver is enlarged up to 23 cm. The spleen is enla rged up to 12 cm. Status post cholecystectomy. The liver, spleen, pancreas, adrenal glands and kidneys are otherwise normal. Urinary bladder is normal in appearance. There is no bowel obstruction or inflammation. No evidence for acute appendicitis. Mild atherosclerotic calcifications are seen. No lymphadenopathy or ascites is seen. Degenerative changes are seen in the spine. IMPRESSION: No evidence of acute intra-abdominal pathology. Hepatosplenomegaly noted. Electronically signed by: Rocky Forrest MD (05/27/2021 3:13 PM) [id number]
[2021-05-27 16:03] LABS: ACETAMIN < 2.0 mcg/mL (10-30)
[2021-05-27 16:25] LABS: BARBITURATES NEG (NEG); BENZODIAZEPINES POS (NEG); CANNABINOIDS NEG (NEG); COCAINE NEG (NEG); METHADONE NEG (NEG); OPIATES NEG (NEG); PHENCYCLIDINE NEG (NEG)
[2021-05-27 16:28] LABS: AMPHETAMINE/METHAMPHETAMINE NEG (NEG)
[2021-05-27 16:31] LABS: BACTERIA,URINE 0 /HPF (0-FEW); BILIRUBIN,URINE LARGE (NEG); CLARITY,URINE CLEAR; COLOR,URINE AMBER; GLUCOSE,URINE 100 mg/dL (NEG); NITRITE,URINE NEG (NEG); RBC,URINE 0 /HPF (0-2); SQUAMOUS EPITHELIAL CELL,UR FEW /LPF; WBC,URINE 0 /HPF (0-4)
[2021-05-27] MEDS ORDERED: ONDANSETRON PF 4 MG/2 ML VIAL. IVP PRN (16:45)
[2021-05-27] MEDS ORDERED: NITROGLYCERIN SUBLINGUAL 0.4 MG BOTTLE OF 25. SL PRN (16:45)
[2021-05-27] MEDS ORDERED: IV NORMAL SALINE 1,000ML 1,000 ML IV ONE (17:00)
[2021-05-27 17:55] VITALS: BP 108/71
[2021-05-27] MEDS ORDERED: BUDE10.2 IH (18:31)
[2021-05-27] MEDS ORDERED: AMOX1TAB58 PO (18:31)
[2021-05-27] MEDS ORDERED: ASPI-630 PO (18:31)
[2021-05-27] MEDS ORDERED: DIGO250T PO (18:31)
[2021-05-27] MEDS ORDERED: ZINC50TA39 PO (18:31)
[2021-05-27] MEDS ORDERED: FLUT1AER IH (18:31)
[2021-05-27] MEDS ORDERED: METO25TA4 PO (18:31)
[2021-05-27] MEDS ORDERED: PRED-220 PO (18:31)
[2021-05-27] MEDS ORDERED: ASCO500T3 PO (18:31)
[2021-05-27] MEDS ORDERED: BUPR150T15 PO (18:31)
[2021-05-27] MEDS ORDERED: ALPR1TAB6 PO (18:31)
[2021-05-27] MEDS ORDERED: ZOLPIDEM 5 MG TABLET. PO PRN (18:45)
--- NOTE | 2021-05-27 18:50 | NUR ---
PATIENT IS A 41 Y O FEMALE ADMITTED BY DR. CORREA, ARRIVED VIA EMS. PATIENT IS A/OX4, NICE AND PLEASANT UPON ADMISSION, STATED SHE DID NOT EAT ANYTHING SINCE NOON, REQUESTED MEAL. PATIENT WAS ORIENTED TO THE ROOM AND HOSPITAL POLICIES, BELONGINGS OBTAINED.
[2021-05-27] MEDS: ALBUTEROL SULFATE 2.5 MG/3 ML NEBU. NEB SCH (20:00)
[2021-05-27] MEDS: BUDESONIDE 0.5 MG/2 ML NEBU NEB SCH (20:00)
[2021-05-27 20:27] LABS: C REACTIVE PROTEIN 26.1 mg/L (0-3.3)
[2021-05-27 20:37] LABS: DIG 0.4 ng/dL (0.9-2.0)
[2021-05-27] MEDS: ALPRAZolam 0.5 MG TABLET PO SCH (20:46)
[2021-05-27] MEDS: ENOXAPARIN 40 MG/0.4 ML SYRINGE. SQ SCH (20:46)
[2021-05-27] MEDS: METOPROLOL TART IMMED RELEASE 25 MG TABLET. PO SCH (20:47)
[2021-05-27] MEDS ORDERED: NON FORMULARY ITEM (Budesonide/Formoterol Fumarate (Symbicort 160-4.5 Mcg Inhaler) 2 PUFF) IH SCH (21:00)
[2021-05-28 00:03] VITALS: BP 111/73
[2021-05-28] MEDS: ALBUTEROL SULFATE 2.5 MG/3 ML NEBU. NEB SCH ×4 (05:38→18:54)
[2021-05-28 06:04] VITALS: BP 111/75
[2021-05-28 06:13] LABS: BASO # 0.1 x10^3/uL (0.0-0.2); BASO % 2 % (0-3); EOS # 0.1 x10^3/uL (0.0-0.7); EOS % 1 % (0-3); HEMATOCRIT 39.6 % (36.0-47.0); HEMOGLOBIN 13.2 g/dL (12.0-15.5); LYMPH # 2.3 x10^3/uL (1.0-4.8); LYMPH % 45 % (24-48); MEAN CORPUSCULAR HEMOGLOBIN 32 pg (25-35); MEAN CORPUSCULAR HGB CONC 33 g/dL (31-37); MEAN CORPUSCULAR VOLUME 94 fL (79-100); MONO # 0.4 x10^3/uL (0.0-1.1); MONO % 8 % (0-9); NEUT # 2.3 x10^3uL (1.8-7.7); NEUT % 44 % (31-73); PLATELET COUNT 205 x10^3/uL (140-400); RED CELL DISTRIBUTION WIDTH 15.7 % (11.5-14.5); WHITE BLOOD COUNT 5.2 x10^3/uL (4.0-11.0)
--- NOTE | 2021-05-28 06:14 | NUR ---
PT RECEIVED HONORIO XANAX AT HS. PT SLEPT VERY WELL OVERNIGHT. PER LAB THIS MORNING, PT'S COVID PCR IS NEGATIVE--PT TAKEN OUT OF COVID ISOLATION. RT AT BEDSIDE GIVING NEBULIZER TREATMENT.
[2021-05-28 06:26] LABS: ALBUMIN 2.3 g/dL (3.4-5.0); ALBUMIN/GLOBULIN RATIO 0.5 (1.0-1.7); CALCIUM 7.9 mg/dL (8.5-10.1); CREATININE 0.6 mg/dL (0.6-1.0); GFR 109.6; POTASSIUM 3.5 mmol/L (3.5-5.1); TOTAL BILIRUBIN 8.5 mg/dL (0.2-1.0); TOTAL PROTEIN 6.6 g/dL (6.4-8.2)
[2021-05-28] MEDS ORDERED: buPROPion XL 150 MG TAB.ER.24H PO SCH (08:00)
[2021-05-28] MEDS: ALPRAZolam 0.5 MG TABLET PO SCH ×3 (08:01→20:15)
[2021-05-28] MEDS: DI PO SCH (08:01)
[2021-05-28] MEDS: METOPROLOL TART IMMED RELEASE 25 MG TABLET. PO SCH ×2 (08:02→20:15)
[2021-05-28] MEDS: ZINC SULFATE 220 MG CAPSULE. PO SCH (08:02)
[2021-05-28] MEDS: predniSONE 10 MG TABLET. PO SCH (08:02)
[2021-05-28] MEDS: BUDESONIDE 0.5 MG/2 ML NEBU NEB SCH ×2 (08:02→18:54)
--- NOTE | 2021-05-28 08:15 | RAD ---
EXAM: Chest, 2 views. HISTORY: Shortness of breath. COMPARISON: 05/22/2020 FINDINGS: 2 views of the chest are obtained. There is diffuse interstitial infiltrate. There is no co nsolidation, pleural effusion or pneumothorax. The heart is normal in size. IMPRESSION: Diffuse interstitial infiltrate. Electronically signed by: Betsy Hernandez MD (05/28/2021 8:12 AM) [id number]
--- NOTE | 2021-05-28 08:18 | RAD ---
EXAM: Abdomen sonogram. HISTORY: Elevated liver function laboratory values. TECHNIQUE: Sonographic imaging of the abdomen was performed. COMPARISON: CT dated 05/27/2021. FINDINGS: The liver is enlarged. There is hepatic steatosis. No focal hepatic lesion is seen. The com mon bile duct is normal in caliber. There is a hypoechoic shadowing structure within the gallbladder fossa likely due to an air-filled loop of proximal small bowel. The pancreas and right kidney are unr emarkable. The inferior cava is obscured due to bowel gas. There is a positive sonographic Sánchez's s ign. IMPRESSION: 1. Hepatomegaly and hepatic steatosis. 2. Cholecystectomy. There is a positive sonographic Sánchez's sign and suspected air-filled proximal s mall bowel within the gallbladder fossa. Electronically signed by: Betsy Hernandez MD (05/28/2021 8:15 AM) [id number]
[2021-05-28 08:27] LABS: % ATYL 20 % (0-0); % BANDS 6 % (0-9); % EOS 1 % (0-5); % LYMPHS 23 % (24-48); % MONOS 5 % (0-10); % SEGS 45 % (35-66)
[2021-05-28 08:29] LABS: TARGET CELLS PRESENT
[2021-05-28 08:34] LABS: PLT ESTIMATE ADEQUATE (ADEQUATE)
[2021-05-28] MEDS ORDERED: ENOXAPARIN ** NOTE DOSE ** SYRINGE SQ SCH (09:00)
[2021-05-28] MEDS ORDERED: NON FORMULARY ITEM (Fluticasone/Vilanterol (Breo Ellipta 100-25 Mcg Inh) 2 PUFF) IH SCH (09:00)
[2021-05-28 10:38] VITALS: BP 107/71
[2021-05-28] MEDS ORDERED: IOHEXOL 350 MG/ML 100 ML VIAL. IV ONE (11:00)
[2021-05-28 11:15] LABS: MONONUCLEOSIS PATIENT NEGATIVE (NEGATIVE)
[2021-05-28] MEDS: SUCRALFATE 1 GM TABLET. PO SCH ×2 (12:10→20:15)
--- NOTE | 2021-05-28 12:58 | RAD ---
EXAM: CT angiography of the chest with intravenous contrast. HISTORY: Shortness of breath. Elevated d-dimer. TECHNIQUE: Computed tomographic images of the chest were obtained following the administration of int ravenous contrast according to angiography protocol. Multiplanar reformatting was performed and three dimensional maximum intensity projection images were obtained. *One or more of the following individualized dose reduction techniques were utilized for this examina tion: 1. Automated exposure control. 2. Adjustment of the mA and/or kV according to patient size. 3. Use of iterative reconstruction technique. COMPARISON: 10/04/2020. FINDINGS: There is no evidence of pulmonary embolism. The heart is normal in size. The aorta is ulises l in caliber. There is a nonspecific left superior mediastinum lymph node measuring 1.0 cm in long ax is. There is a nonspecific right paratracheal lymph node measuring 1.1 cm in long axis. There is no pneumothorax or pleural effusion. There is reticular interstitial thickening and groundgl ass opacity scattered throughout both lungs. There is no consolidation. There is no suspicious pulmon anabell nodule. There is hepatomegaly and hepatic steatosis. The gallbladder is surgically absent. The spleen is enla rged. There is no acute or suspicious osseous finding. There are degenerative changes involving the l ower thoracic and upper lumbar spine. IMPRESSION: 1. No evidence of pulmonary embolism. 2. Stable scattered groundglass opacities with reticular interstitial thickening. The interval stabil ity favors chronic interstitial changes. However, the possibility of recurrent atypical pneumonia is not excluded. 3. Slight interval decrease in previously demonstrated mediastinal lymph nodes. These are likely reac tive. 4. Hepatomegaly and hepatic steatosis. 4. Splenomegaly. Electronically signed by: Betsy Hernandez MD (05/28/2021 12:56 PM) [id number]
[2021-05-28 14:55] VITALS: BP 103/68
--- NOTE | 2021-05-28 15:15 | PN ---
SUBJECTIVE: The patient was admitted yesterday with markedly elevated liver enzymes. The patient is still jaundiced, still having abdominal discomfort and nausea. The patient's liver enzymes seem to be coming down gradually. Still waiting for labs to come back on her hepatitis screen. Otherwise, it is interesting that she does show a large number of atypical lymphocytes, percentage beltran 20%, manual. Liver enzymes 386, down to 297; ALT 114, down to ____; alkaline phosphatase from 115 to 110. C-reactive protein 26. Albumin low at 2.3. Sugars will be monitored. She got off most of her medications that were not absolutely necessary. Still waiting for hepatitis screen as well as a mononucleosis screen, EBV that is, as a possible cause of this elevated liver enzymes. OBJECTIVE: VITAL SIGNS: Appear stable at 110/70, respiratory rate 18, pulse 70, afebrile, 3 liters, 95%. GENERAL: The patient is alert and oriented, jaundiced-appearing individual, icteric. LUNGS: Diminished, but clear. CARDIOVASCULAR SYSTEM: Stable. ABDOMEN: Soft. Diffuse tenderness in the right upper quadrant. No masses, no hepatosplenomegaly noted. There is some tenderness in the left upper quadrant as well to light palpation, but no rebounding, no guarding. Positive bowel sounds. EXTREMITIES: Without clubbing, cyanosis, nor edema. NEUROLOGIC: The patient is alert and oriented. We will go ahead and continue to monitor the patient, given fluids. She does have an infiltrate in her lungs, possible pneumonic process. She had COVID-19 a year ago, maybe left over from that. We will do a CTA on her since her D-dimer was also elevated, but she has negative Rene signs bilaterally, but obviously, we will do a CTA to evaluate this further elevation in her D-dimer. She is on Lovenox. IMPRESSION: Hepatitis, jaundice, type 2 diabetes. PLAN: Continue with present drug regimen, IV antibiotic therapy, just using Rocephin, cleared through the kidneys and continue to monitor her accordingly. NAHOMY/DARYL/KRISTINA DR: NAHOMY/johanna TID: [id number]
--- NOTE | 2021-05-28 17:48 | NUR ---
Pr declined morning xanax, denies feelings of anxiety this morning. CXR, CT abdomen pelvis, and abdominal US completed. Remains on 3L NC tolerating well. Independently moves about the room. Still awaiting results of hepatitis panel. Denies pain. VSS. GRESHAM. Addendum: 05/28/21 at 1751 by SUSAN WATTS RN RN Pt declined morning xanax, denies feelings of anxiety this morning. CXR, CT abdomen pelvis, and abdominal US completed. Remains on 3L NC tolerating well. Independently moves about the room. Still awaiting results of hepatitis panel. Denies pain. VSS. GRESHAM.
[2021-05-28] MEDS: ENOXAPARIN 40 MG/0.4 ML SYRINGE. SQ SCH (20:16)
[2021-05-28 20:25] VITALS: BP 125/75
[2021-05-28] MEDS ORDERED: DEXTROSE 50% 25 GM / 50ML DISP.SYRIN. IV PRN (20:30)
[2021-05-29] MEDS: ALBUTEROL SULFATE 2.5 MG/3 ML NEBU. NEB SCH ×4 (05:10→20:05)
[2021-05-29] MEDS: BUDESONIDE 0.5 MG/2 ML NEBU NEB SCH ×3 (05:10→20:07)
[2021-05-29 06:07] VITALS: BP 109/73
[2021-05-29] MEDS: METOPROLOL TART IMMED RELEASE 25 MG TABLET. PO SCH ×2 (08:27→19:56)
[2021-05-29] MEDS: ZINC SULFATE 220 MG CAPSULE. PO SCH (08:27)
[2021-05-29] MEDS: predniSONE 10 MG TABLET. PO SCH (08:28)
[2021-05-29] MEDS: DI PO SCH (08:28)
[2021-05-29] MEDS: SUCRALFATE 1 GM TABLET. PO SCH ×2 (08:28→19:56)
[2021-05-29] MEDS: INSULIN LISPRO 300 UNITS/3 ML VIAL. SQ SCH ×3 (08:29→18:03)
[2021-05-29] MEDS: ALPRAZolam 0.5 MG TABLET PO SCH ×2 (09:00→19:57)
[2021-05-29 11:50] VITALS: BP 122/77
[2021-05-29 16:51] VITALS: BP 124/68
[2021-05-29 19:46] VITALS: BP 124/82
[2021-05-29] MEDS: ENOXAPARIN 40 MG/0.4 ML SYRINGE. SQ SCH (19:56)
[2021-05-29] MEDS: CEFDINIR 300 MG CAPSULE PO SCH (19:57)
--- NOTE | 2021-05-29 20:07 | NUR ---
2nd pulmicort was given earlier by nursing. Pulmicort is BID.
[2021-05-29 21:13] LABS: ANA INTERP Negative (.)
--- NOTE | 2021-05-29 21:31 | PN ---
SUBJECTIVE: A 41-year-old female in with severe hepatitis, dehydration, abdominal pain, splenomegaly. The patient is resting fairly comfortably, making reasonably good progress overall. She has had a reactive hepatitis A IgM antibody, may have been from some salad she has been eating. She is still very weak. She is also still being treated for possible atypical pneumonia as well. The patient is receiving IV antibiotic therapy and will be converted over as her IV is infiltrated, but she continues to make good progress. OBJECTIVE: VITAL SIGNS: The patient's blood pressure 122/70, respiration 18, pulse 79, afebrile. GENERAL: The patient is alert and oriented. LUNGS: Diminished, but clear. CARDIOVASCULAR: Stable. ABDOMEN: Soft, diffuse tenderness in the left upper and mid epigastric area. No hepatosplenomegaly noted on palpation in any way. EXTREMITIES: No clubbing, cyanosis or edema. NEUROLOGIC: Intact. IMPRESSION: Hepatitis A, jaundice, type 2 diabetes and pneumonitis, possibly atypical. NAHOMY/MICHELLET DR: Raymond TID: [id number]
[2021-05-30] MEDS: ALBUTEROL SULFATE 2.5 MG/3 ML NEBU. NEB SCH ×2 (05:09→12:02)
[2021-05-30] MEDS: BUDESONIDE 0.5 MG/2 ML NEBU NEB SCH (05:09)
[2021-05-30 07:52] VITALS: BP 105/73
[2021-05-30] MEDS: ALPRAZolam 0.5 MG TABLET PO SCH (08:12)
[2021-05-30] MEDS: DI PO SCH (08:12)
[2021-05-30] MEDS: CEFDINIR 300 MG CAPSULE PO SCH (08:12)
[2021-05-30] MEDS: SUCRALFATE 1 GM TABLET. PO SCH (08:13)
[2021-05-30] MEDS: ZINC SULFATE 220 MG CAPSULE. PO SCH (08:13)
[2021-05-30] MEDS: METOPROLOL TART IMMED RELEASE 25 MG TABLET. PO SCH (08:13)
[2021-05-30] MEDS: predniSONE 10 MG TABLET. PO SCH (08:14)
[2021-05-30] MEDS: INSULIN LISPRO 300 UNITS/3 ML VIAL. SQ SCH ×2 (08:16→12:22)
[2021-05-30] MEDS ORDERED: buPROPion XL 150 MG TAB.ER.24H PO SCH (09:00)
[2021-05-30] MEDS ORDERED: LACTOBACILLUS RHAMNOSUS GG 1 CAPSULE. PO SCH (09:00)
[2021-05-30 11:02] VITALS: BP 121/78
[2021-05-30] MEDS ORDERED: CEFD300C PO (14:31)
[2021-05-30] MEDS ORDERED: SUCR1TAB35 PO (14:31)
[2021-05-30] MEDS ORDERED: ALBU2.5V8 NEB (14:31)
[2021-05-30] MEDS ORDERED: INSU100I11 SQ (14:31)
--- NOTE | 2021-05-30 15:10 | NUR ---
discharge note Pt given written and verbal discharge instructions with verbal statement of understanding received.
== END 2021-05-30 15:28 | disposition home or self-care (01) | DRG 441 ==
LOC: ER 12:39 → 1 SOUTH 16:59
PROVIDERS: ADMIT Family Medicine; ATTEND Family Medicine
DX: B15.9 Hepatitis A without hepatic coma (principal); J18.9 Pneumonia, unspecified organism; E11.9 Type 2 diabetes mellitus without complications; E86.0 Dehydration; Z90.49 Acquired absence of other specified parts of digestive tract; Z90.710 Acquired absence of both cervix and uterus; Z20.822 Contact with and (suspected) exposure to COVID-19
CPT/HCPCS: 36415; 71046; 71275; 74177; 76705; 80053; 80076; 80162; 80307; 80329; 81001; 82248; 82550; 82947; 82977; 83690; 84484; 85007; 85025; 85379; 85610; 85730; 86038; 86140; 86308; 86705; 86709; 86803; 87340; 87428; 93005; 94640; J0696; J1650; J1815; J7512; Q9967; U0003; 99285-25; G0480; J7030; J7613